=== PATIENT | female | born 1960 | race African-American/Black ===

== ENCOUNTER 2017-05-02 06:40 | Emergency (ER) | payer OTHER ==
[2017-05-02 07:32] VITALS: BMI 28.5
--- NOTE | 2017-05-02 08:27 | PDOC ---
History of Present Illness <Winnie Correia - Last Filed: 05/02/17 13:24> - General History Source: Patient - History of Present Illness Initial Comments: 05/02/17 07:23 57 y/o female with hx/o htn, hypothyroidism (non-compliant with med regimen) c/ o left retro-orbital pressure with nausea, dizziness, and elevated blood pressure. dizziness (non-vertiginous) is intermitent and chronic. Patient denies changes in visual acuity, weakness or paresthesias of extremities. Patient was recently evaluated by her estimate clerk who diagnosed her with unspecified tears with on the left eye likely related to uncontrolled hypertension. Patient denies trauma/fever/chills/chest pain/abdominal pain. REVIEW OF SYSTEMS CONSTITUTIONAL: No fever, no chills, no fatigue EYES: No visual changes, + left orbital pressure ENT: No ear pain, no sore throat CARDIOVASCULAR: No chest pain, no palpitations RESPIRATORY: No cough, no SOB GI: No abdominal pain, + nausea, no vomiting, no constipation, no diarrhea GENITOURINARY: No dysuria, no frequency, no hematuria MUSKULOSKELETAL: No backpain, no joint pain, no myalgias SKIN: No rash NEURO: No headache EXAMINATION CONSTITUTIONAL: Well-appearing; well-nourished; in no apparent distress HEAD: Normocephalic; atraumatic EYES: PERRL; EOM intact; + visual acuity: OS-20/25; OD-20/30; without corrective lenses; cornea is clear bilaterally; ENMT: External appears normal; normal oropharynx NECK: Supple; non-tender; no cervical lymphadenopathy CARD: Normal S1, S2; no murmurs, rubs, or gallops RESP: Normal chest excursion with respiration; breath sounds clear and equal bilaterally; no wheezes, rhonchi, or rales ABD: Soft, non-distended; non-tender; no palpable organomegaly, no palpable hernias EXT: Normal ROM in all four extremities; non-tender to palpation; distal pulses intact SKIN: Warm, dry, no rash NEURO: Cranial nerves II through XII are grossly intact; motor is 5 of 54; no pronation drift; gait is stable. <Moises Robledo - Last Filed: 05/02/17 13:41> - General Chief Complaint: Blood Pressure Problem Stated Complaint: HTN Time Seen by Provider: 05/02/17 07:08 Past History <Winnie Correia - Last Filed: 05/02/17 13:24> - Suicide/Smoking/Psychosocial Hx Smoking History: Never smoked Have you smoked in the past 12 months: No Information on smoking cessation initiated: No Hx Alcohol Use: No Drug/Substance Use Hx: No <Moises Robledo - Last Filed: 05/02/17 13:41> - Past Medical History Allergies/Adverse Reactions: Allergies Allergy/AdvReac Type Severity Reaction Status Date / Time Penicillins Allergy Verified 05/02/17 07:03 Home Medications: Ambulatory Orders Unobtainable [Unobtainable] 05/02/17 *Physical Exam - Vital Signs Last Vital Signs Temp Pulse Resp BP Pulse Ox 97.6 F 63 20 162/88 99 05/02/17 07:03 05/02/17 07:03 05/02/17 07:03 05/02/17 07:03 05/02/17 07:03 <Winnie Correia - Last Filed: 05/02/17 13:24> - Vital Signs Last Vital Signs Temp Pulse Resp BP Pulse Ox 97.6 F 63 20 162/88 99 05/02/17 07:03 05/02/17 07:03 05/02/17 07:03 05/02/17 07:03 05/02/17 07:03 <Moises Robledo - Last Filed: 05/02/17 13:41> Heart Score/ECG Review #1 05/02/17 08:49 Vent. rate 57 bpm DE interval 158 ms QRS duration 90 ms Sinus bardycardia Nonspecific T Wave abnormality Reviewed by: Dr. Robledo <Winnie Correia - Last Filed: 05/02/17 13:24> #1 05/02/17 11:05 57, sinus bradycardia, axis within normal limit, no ST elevation/depression; T- wave flattening is noted 1, aVL and V6, negative voltage criteria for LVH. <Moises Robledo - Last Filed: 05/02/17 13:41> ED Treatment Course - LABORATORY CBC & Chemistry Diagram: 05/02/17 08:41 05/02/17 08:41 - RADIOLOGY Radiograph Interpretation: 05/02/17 13:[address] W/O CONTRAST Impression: The intracranial structures demonstrate no discrete noncontrast pathology. Left orbital fracture as discussed above of uncertain acuity on the basis of this exam. Correlate clinically. Bilateral optic drusen. The partially imaged nasopharynx demonstrates mildly prominent soft tissue given the patient' s chronological age. The ENT consultation is suggested. Reported by: Rik Hood <Winnie Correia - Last Filed: 05/02/17 13:24> - LABORATORY CBC & Chemistry Diagram: 05/02/17 08:41 05/02/17 08:41 <Moises Robledo - Last Filed: 05/02/17 13:41> Medical Decision Making - Medical Decision Making 05/02/17 11:03 Patient is a well-appearing 57-year-old female with history of hypertension and hypothyroidism who is noncompliant with her medication regimen presents to the ER with atraumatic left orbital pressure, nausea and dizziness. In the ER, patient is mildly hypertensive without focal neurological deficits. Visual acuity is preserved bilaterally. I was unable to visualize optic nerve bilaterally. EKG shows no evidence of LVH; CMP reveals intact renal function. I do not suspect hypertensive emergency at this time. Acute angle glaucoma is also highly unlikely. Patient's symptoms are likely related to hypertensive retinopathy and she will require follow-up with her estimate clerk. 05/02/17 13:37 CT of head shows no evidence of acute intracranial pathology. Old inferior medial orbital wall fractures noted on the left. Patient advised of the need to follow-up with ENT regarding soft tissue in the nasopharynx. Will discharge. <Moises Robledo - Last Filed: 05/02/17 13:41> *DC/Admit/Observation/Transfer <Winnie Correia - Last Filed: 05/02/17 13:24> <Moises Robledo - Last Filed: 05/02/17 13:41> Diagnosis at time of Disposition: Pain of left eye, Nausea Hypertension Qualifiers: Hypertension type: essential hypertension Qualified Code(s): I10 - Essential ( primary) hypertension; I10 - Essential (primary) hypertension; I10 - Essential ( primary) hypertension - Discharge Dispostion Disposition: HOME Condition at time of disposition: Stable - Referrals Referrals: Teo Hardy MD [Staff Physician] - - Patient Instructions Printed Discharge Instructions: DI for High Blood Pressure Additional Instructions: Please continue taking your blood pressure medication as instructed. Follow-up with your estimate clerk any primary care physician. Also follow-up with ENT regarding the CT findings which have been transmitted to you. Return immediately for severe eye pain, changes in vision, nausea, vomiting, severe headache.
[2017-05-02] MEDS ORDERED: ONDANSETRON *ODT* 4 MG TABLET SL ONE (08:41)
[2017-05-02] MEDS ORDERED: ACETAMINOPHEN 325 MG TABLET (FP) PO ONE (08:41)
[2017-05-02] MEDS ORDERED: ACETAMINOPHEN 325 MG TABLET (FP) ONE (08:49)
[2017-05-02] MEDS ORDERED: ONDANSETRON *ODT* 4 MG TABLET ONE (08:50)
[2017-05-02 09:26] LABS: BASOPHIL 0.5 % (0-2.0); EOSINOPHIL 0.1 % (0-4.5); MCH 24.9 pg (25.7-33.7); MCHC 31.7 g/dl (32.0-36.0); MEAN CELL VOLUME 78.6 fl (80-96); MEAN PLT VOLUME 7.6 fl (7.5-11.1); NEUTROPHILS 87.6 % (42.8-82.8); PLATELET COUNT 322 K/MM3 (134-434); RDW 14.9 % (11.6-15.6); WHITE BLOOD COUNT 11.9 K/mm3 (4.0-10.0)
[2017-05-02 09:31] LABS: URINE APPEARANCE CLEAR; URINE BILIRUBIN NEGATIVE (NEGATIVE); URINE BLOOD NEGATIVE (NEGATIVE); URINE COLOR LTYELLOW; URINE GLUCOSE (UA) NEGATIVE (NEGATIVE); URINE KETONE NEGATIVE (NEGATIVE); URINE NITRITE NEGATIVE (NEGATIVE); URINE PROTEIN NEGATIVE (NEGATIVE); URINE UROBILINOGEN NEGATIVE mg/dL (0.2-1.0)
[2017-05-02 09:49] LABS: ALBUMIN 3.6 g/dl (3.4-5.0); ALK PHOS 70 U/L (45-117); ANION GAP 5 (8-16); BILIRUBIN,TOTAL 0.3 mg/dL (0.2-1.0); CALCIUM 9.1 mg/dL (8.5-10.1); CO2 29 mmol/L (21-32); CREATININE 0.8 mg/dL (0.55-1.02); GLUCOSE,RANDOM 93 mg/dL (74-106); SGOT/AST 16 U/L (15-37); SGPT/ALT 19 U/L (12-78); TOT PROT 8.4 g/dl (6.4-8.2)
[2017-05-02 12:05] VITALS: TEMP 98.7
[2017-05-02 14:01] VITALS: BP 126/68; PULSE 64
[2017-05-02 17:20] LABS: URINE LEUK ESTERASE Negative (NEGATIVE)
--- NOTE | 2017-05-06 12:52 | EKG ---
Test Reason : Blood Pressure : / mmHG Vent. Rate : 057 BPM Atrial Rate : 057 BPM P-R Int : 158 ms QRS Dur : 090 ms QT Int : 406 ms P-R-T Axes : 010 028 033 degrees QTc Int : 395 ms SINUS BRADYCARDIA NONSPECIFIC T WAVE ABNORMALITY ABNORMAL ECG NO PREVIOUS ECGS AVAILABLE Confirmed by CHAVA PAULA MD ([id number]) on 05/06/2017 12:51:34 PM Referred By: Confirmed By:CHAVA PAULA MD
== END 2017-05-02 14:01 | disposition home or self-care (01) ==
LOC: JER 06:40
PROC: 4A07X0Z Measurement of Visual Acuity, External Approach (ICD-10-PCS; principal; 2017-05-02)
DX: I10 Essential (primary) hypertension (principal); H57.12 Ocular pain, left eye; E03.9 Hypothyroidism, unspecified; Z91.14 Patient's other noncompliance with medication regimen; Z87.81 Personal history of (healed) traumatic fracture
CPT/HCPCS: 36415; 70450-TC; 80053; 81003; 85025; 93005; 93010; 99284-25